=== PATIENT | male | born 1935 | race Caucasian/White ===

== ENCOUNTER 2017-01-27 17:35 | Emergency (ER) | payer MEDICARE, OTHER | END 2017-01-27 17:45 | disposition home or self-care (01) | LOC: CC.ED 17:35 | DX: Z53.21 Procedure and treatment not carried out due to patient leaving prior to being seen by health care provider (principal) ==

== ENCOUNTER 2020-08-05 06:00 | Emergency (ER) | payer MEDICARE, OTHER ==
[2020-08-05 06:49] LABS: CHLORIDE,CL 105 mEq/L (98-106); SODIUM,NA 139 mEq/L (136-145)
[2020-08-05] MEDS: Lidocaine 1% 20 ML MDV INJECT ONE (06:56)
[2020-08-05] MEDS: Bacitracin/Neomycin/Polymyxin B Oint 0.9 GM U/D Packet TOP ONE (07:01)
--- NOTE | 2020-08-05 07:09 | EDM.PDOC ---
ED HPI GENERAL MEDICAL PROBLEM - General Chief Complaint: Trauma Stated Complaint: TRAUMA Time Seen by Provider: 08/05/20 06:00 Source of Information: Reports: Patient, EMS History Limitations: Reports: No Limitations - History of Present Illness INITIAL COMMENTS - FREE TEXT/NARRATIVE: This is a trauma code: Approximately 230 this morning the patient advised he became dizzy fell striking a bedside table with the left frontal part of his head. The patient did sustain a 6 cm laceration. Bleeding was controlled with pressure. 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 The patient denies any unusual neck, back pain or stiffness. The patient denies any upper or lower extremity pain or problems. The patient denies any chest pain pressure heaviness he denies any palpitations irregular heartbeats. The patient denies any abdominal pain denies any nausea or vomiting. The patient denies any hip or pelvis pain. The patient has been ambulatory after the fall. 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 However, in the emergency department his blood pressure is back within normal limits and he has no nausea.) Left Head Pain Score (Numeric/FACES): 2 - Related Data Allergies Allergy/AdvReac Type Severity Reaction Status Date / Time morphine Allergy Other Verified 08/05/20 06:12 Home Meds: Home Meds Aspirin [Aspirin EC] 81 mg PO DAILY 08/05/20 [History] Calcium Carbonate/Vitamin D3 [Calcium 1,000 + D3 Caplet] 1 each PO DAILY 08/05/20 [History] Cyanocobalamin (Vitamin B-12) [Vitamin B-12] 1,000 mcg PO DAILY 08/05/20 [History] Furosemide 1 tab PO DAILY 08/05/20 [History] Glimepiride 1 tab PO DAILY 08/05/20 [History] Losartan [Cozaar] 25 mg PO DAILY 08/05/20 [History] Montelukast Sodium 1 tab PO DAILY 08/05/20 [History] Omeprazole 20 mg PO DAILY 08/05/20 [History] Potassium Chloride [Klor-Con 10] 1 tab PO DAILY 08/05/20 [History] Rosuvastatin Calcium 1 tab PO DAILY 08/05/20 [History] Sertraline [Zoloft] 1 tab PO DAILY 08/05/20 [History] Warfarin [Coumadin] 1 tab PO DAILY 08/05/20 [History] carvediloL [Carvedilol] 3.125 mg PO BID 08/05/20 [History] Review of Systems - Review of Systems Review Of Systems: See Below Constitutional: Reports: No Symptoms. Denies: Chills, Fever, Weakness Eyes: Reports: No Symptoms. Denies: Blurred Vision Ears: Reports: No Symptoms Nose: Reports: No Symptoms Mouth/Throat: Reports: No Symptoms Respiratory: Reports: No Symptoms. Denies: Shortness of Breath Cardiovascular: Reports: No Symptoms. Denies: Chest Pain GI/Abdominal: Reports: No Symptoms. Denies: Abdominal Pain, Nausea, Vomiting Musculoskeletal: Reports: No Symptoms. Denies: Neck Pain, Back Pain Skin: Reports: Wound Neurological: Denies: Confusion, Dizziness (The patient has a history of chronic dizziness which he advises has been worked up multiple times and unable to find a cause. 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 and his pupils are slightly irregular) Ear Exam: Bilateral Ear: Auricle Normal, Canal Normal, TM normal Nose: Normal Inspection Throat/Mouth: Normal Inspection, Normal Oropharynx, Normal Voice, No Airway Compromise Head: Normocephalic Neck: Normal Inspection, Supple, Non-Tender, Full Range of Motion Respiratory/Chest: No Respiratory Distress, Lungs Clear, Normal Breath Sounds, Chest Non-Tender Cardiovascular: Normal Peripheral Pulses, Regular Rate, Rhythm, Systolic Murmur Peripheral Pulses: 2+: Radial (L), Radial (R) GI/Abdominal: Soft, Non-Tender Back Exam: Normal Inspection, Full Range of Motion Extremities: Normal Inspection, Normal Range of Motion, Non-Tender, Normal Capillary Refill Neurological: Alert, Oriented, CN II-XII Intact, Normal Cognition, Normal Gait, Normal Reflexes, No Motor/Sensory Deficits Psychiatric: Normal Affect, Normal Mood Skin Exam: Warm, Dry, Normal Color. No: Intact (6 cm laceration above the left eye on the forehead) ED TRAUMA PROCEDURES - Laceration/Wound Repair Left Forehead Lac/Wound Length In cm: 6 Appearance: Subcutaneous Distal NVT: Neuro & Vascular Intact Anesthetic Type: Local Local Anesthesia - Lidocaine (Xylocaine): 1% Plain Local Anesthetic Volume: Other (7cc) Skin Prep: Saline, Sterile Drape, Other (Safe clean cleanser) Exploration/Debridement/Repair: Wound Explored, In a Bloodless Field, Explored to Base, No Foreign Material Found Closed With: Sutures Suture Size: 6-0 # of Sutures: 10 Suture Type: Nylon Drain Placement: No Sterile Dressing Applied: Provider Tetanus Status Addressed: Yes (Is up-to-date) Complications: No EKG INTERPRETATION EKG Date: 08/05/20 Time: 06:38 Rhythm: Other (Paced rhythm) EKG Interpretation Comments: Twelve-lead EKG shows an electronically paced rhythm Course - Vital Signs Text/Narrative:: 0620 The patient was evaluated in the emergency department, a trauma code was called, patient underwent a CT of the head and cervical spine right away which did not reveal any acute intracranial processes however there is some chronic white matter ischemia as well as some encephalomalacia and atrophy for age. Cervical spine does show some degenerative changes. however, there is no obvious subluxation or fracture. These are my readings and the radiology reading is still pending. Lab has been in and collected samples and are being processed. 0719 the patient's blood work is all essentially negative he does have some chronic renal insufficiency. The patient's INR is therapeutic. See all the labs for complete details. The CT of the head and cervical spine was read by the radiologist with no acute findings. See those reports for details. The patient was advised the need to suture the wound and he agrees to proceed after the risk and benefits was explained. The patient does have a 6 cm laceration to the left forehead that was repaired with 10 interrupted six-point 0 nylon sutures. See the procedure note for details. The patient's vital signs have remained stable. His twelve-lead EKG is a electronically paced rhythm. The patient advises he has no further nausea no dizziness. The patient will be discharged home. He will be given instructions for wound care as well as head injury instructions. The patient is to follow-up with his family doctor this coming week for post ER visit and he is also advised that the sutures can probably come out in 7 to 10 days. The patient is further advised to apply thin coat of bacitracin 3 times a day to the wound. The patient was given Keflex 500 mg 4 times a day for 3 days for prophylaxis. The patient was further advised to return to the emergency department sooner if worse or any problems. The patient's family remained outside in the vehicle and all this was also explained to them. On discharge the patient's GCS is 4-5-6. Last Recorded V/S: Last Vital Signs Temp 36.1 C 08/05/20 07:03 Pulse 61 08/05/20 07:03 Resp 18 08/05/20 07:03 BP 107/57 L 08/05/20 07:03 Pulse Ox 97 08/05/20 07:03 - Orders/Labs/Meds Orders: Active Orders 24 hr Category Date Time Status C-Spine [Cervical Spine wo Cont] [CT] Stat Exams 08/05/20 06:04 Taken Head wo Cont [CT] Stat Exams 08/05/20 06:00 Taken UA W/HOMERO RFLX IF INDICATED [URIN] Stat Lab 08/05/20 05:58 Ordered Labs: Laboratory Tests 08/05/20 08/05/20 08/05/20 Range/Units 06:25 06:25 06:25 WBC 9.8 (5.0-10.0) 10^3/uL RBC 4.08 L (4.50-6.00) 10^6/uL Hgb 12.6 L (14.0-18.0) g/dL Hct 37.0 L (40.0-54.0) % MCV 90.7 (82.0-94.0) fL MCH 30.9 (27.0-32.0) pg MCHC 34.1 (33.0-38.0) g/dL RDW Coeff of Ba 14.0 (11.0-15.0) % Plt Count 228 (150-400) 10^3/uL Neut % (Auto) 70.1 (35-85) % Lymph % (Auto) 22.8 (10-55) % Cole % (Auto) 4.8 (0-16) % Eos % (Auto) 1.9 (0-5) % Baso % (Auto) 0.4 (0-3) % Neut # (Auto) 6.88 (1.80-7.00) 10^3/uL Lymph # (Auto) 2.24 (1.00-4.80) 10^3/uL Cole # (Auto) 0.47 (0.00-0.80) 10^3/uL Eos # (Auto) 0.19 (0.00-0.45) 10^3/uL Baso # (Auto) 0.04 10^3/uL PT 22.1 H (9.7-12.3) SEC INR 2.21 H (0.92-1.18) Sodium 139 (136-145) mEq/L Potassium 5.1 H (3.5-5.0) mEq/L Chloride 105 (98-106) mEq/L Carbon Dioxide 25 (21-32) mmol/L BUN 22 H (7-18) mg/dL Creatinine 1.8 H (0.7-1.3) mg/dL Est Cr Clr Drug Dosing TNP Estimated GFR (MDRD) 36 L (>=60) mL/min Glucose 205 H (75-99) mg/dL Calcium 8.7 (8.4-10.1) mg/dL Magnesium 2.0 (1.8-2.4) mg/dL Total Bilirubin 0.6 (0.0-1.0) mg/dL AST 11 L (15-37) U/L ALT 26 (12-78) U/L Alkaline Phosphatase 91 (46-116) U/L Troponin I < 0.017 (0.00-0.06) ng/mL Total Protein 6.2 L (6.4-8.2) g/dL Albumin 3.1 L (3.4-5.0) g/dL Meds: Medications Discontinued Medications Generic Name Dose Route Start Last Admin Trade Name Freq PRN Reason Stop Dose Admin Cephalexin 3 packet 08/05/20 07:24 Take Home: Cephalexin 500 Mg, 4 Cap Pack PO 08/05/20 07:25 ONETIME ONE Lidocaine HCl 20 ml 08/05/20 06:24 08/05/20 06:56 Xylocaine 1% INJECT 08/05/20 06:25 20 ml ONETIME ONE Administration Neomycin/Polymyxin/Bacitracin 1 each 08/05/20 06:57 08/05/20 07:01 Triple Antibiotic Oint TOP 08/05/20 06:58 1 each ONETIME ONE Administration Departure - Departure Time of Disposition: 07:22 Disposition: Home, Self-Care 01 Condition: Good Clinical Impression: Fall, Closed head injury, Forehead laceration - Discharge Information *PRESCRIPTION DRUG MONITORING PROGRAM REVIEWED*: Not Applicable *COPY OF PRESCRIPTION DRUG MONITORING REPORT IN PATIENT DEB: Not Applicable Instructions: Laceration Care, Adult, Head Injury, Adult, [id number] Referrals: PCP,Unknown [Primary Care Provider] - Forms: ED Department Discharge Additional Instructions: Keep the wound clean and dry Apply thin coat of bacitracin ointment 3 times a day Follow-up with your family doctor this coming week for post emergency department visit evaluation Sutures can probably come out in 7 to 10 days Return to the emergency department sooner if worse or any problems Sepsis Event Note (ED) - Evaluation Sepsis Screening Result: No Definite Risk - Focused Exam Vital Signs: Vital Signs Temp Pulse Resp BP Pulse Ox 08/05/20 07:03 36.1 C 61 18 107/57 L 97 08/05/20 06:43 36.1 C 61 18 112/48 L 95 - Problem List & Annotations (1) Closed head injury SNOMED Code(s): 691377135231 Code(s): S09.90XA - UNSPECIFIED INJURY OF HEAD, INITIAL ENCOUNTER Status: Acute Priority: Medium Current Visit: Yes Qualifiers: Encounter type: initial encounter Qualified Code(s): S09.90XA - Unspecified injury of head, initial encounter (2) Fall SNOMED Code(s): 6780753, 617669397 Code(s): W19.XXXA - UNSPECIFIED FALL, INITIAL ENCOUNTER Status: Acute Priority: Medium Current Visit: Yes Qualifiers: Encounter type: initial encounter Qualified Code(s): W19.XXXA - Unspecified fall, initial encounter (3) Forehead laceration SNOMED Code(s): 611722287 Code(s): S01.81XA - LACERATION W/O FOREIGN BODY OF OTH PART OF HEAD, INIT ENCNTR Status: Acute Priority: Medium Current Visit: Yes Qualifiers: Encounter type: initial encounter Qualified Code(s): S01.81XA - Laceration without foreign body of other part of head, initial encounter - Problem List Review Problem List Initiated/Reviewed/Updated: Yes - My Orders Last 24 Hours: My Active Orders 08/05/20 05:58 UA W/HOMERO RFLX IF INDICATED [URIN] Stat 08/05/20 06:00 Head wo Cont [CT] Stat 08/05/20 06:04 C-Spine [Cervical Spine wo Cont] [CT] Stat - Assessment/Plan Last 24 Hours: My Active Orders 08/05/20 05:58 UA W/HOMERO RFLX IF INDICATED [URIN] Stat 08/05/20 06:00 Head wo Cont [CT] Stat 08/05/20 06:04 C-Spine [Cervical Spine wo Cont] [CT] Stat
[2020-08-05] MEDS ORDERED: Take Home: Cephalexin 500 MG Cap, 4 Cap Pack PO ONE (07:24)
== END 2020-08-05 07:40 | disposition home or self-care (01) ==
LOC: CC.ED 06:00
DX: S09.90XA Unspecified injury of head, initial encounter (principal); S01.81XA Laceration without foreign body of other part of head, initial encounter; Z95.1 Presence of aortocoronary bypass graft; Z88.5 Allergy status to narcotic agent; Z79.01 Long term (current) use of anticoagulants; Z79.82 Long term (current) use of aspirin; Z79.899 Other long term (current) drug therapy; W01.198A Fall on same level from slipping, tripping and stumbling with subsequent striking against other object, initial encounter
CPT/HCPCS: 12014; 36415; 70450; 72125; 80053; 83735; 84484; 85025; 85610; 93005; 99283; 99284-25; J2001